=== PATIENT | female | born 1935 | race Caucasian/White ===

== ENCOUNTER 2019-03-29 08:23 | Day surgery (SDC) | payer MEDICARE ==
[~2019-03-29] VITALS: Ht 160 cm; Wt 62.2 kg
[~2019-03-29 08:23] MED LIST: LACT1CAP26 PO; LEVO500T89 PO; LEVO50TA8 PO; NIFE30TA95 PO
[2019-03-29] MEDS ORDERED: normal saline 1000ml 1,000 ML IV PRN (09:45)
--- NOTE | 2019-03-29 10:27 | NUR ---
on admission pt stated hx of IV Dye allergy-CT contacted and after consult with oil heat technician and physician it was decided to proceed without contrast so IV fluids were d/c'd and patient admission was no longer necessary. Addendum: 03/29/19 at 1030 by Lilia Mcfarland RN Amended: Links added.
== END 2019-03-29 10:00 | disposition home or self-care (01) ==
LOC: SSTAY O 08:23 → EDSTATUS 09:00 → SSTAY O 10:00
PROVIDERS: ATTEND Internal Medicine
DX: M89.8X8 Other specified disorders of bone, other site (principal); K76.89 Other specified diseases of liver; J98.11 Atelectasis; K57.30 Diverticulosis of large intestine without perforation or abscess without bleeding; Z88.0 Allergy status to penicillin; Z88.1 Allergy status to other antibiotic agents; Z88.8 Allergy status to other drugs, medicaments and biological substances; Z88.2 Allergy status to sulfonamides; Z91.041 Radiographic dye allergy status
CPT/HCPCS: 74176; J7030

== ENCOUNTER 2019-04-26 05:49 | Emergency (ER) | payer MEDICARE ==
[~2019-04-26] VITALS: Ht 160 cm; Wt 62.3 kg
[~2019-04-26 05:49] MED LIST changes: -LEVO500T89 PO
--- NOTE | 2019-04-26 06:07 | NUR ---
Pain to RLQ that radiates down her right leg. Hx of an abdominal mass. Pain is here for pain meds as she has no doctor to follow her.
[2019-04-26] MEDS ORDERED: TRAM50TA2 PO (06:45)
[2019-04-26] MEDS ORDERED: traMADol 50MG tablet PO ONE (06:45)
[2019-04-26 06:57] VITALS: BP 149/89
== END 2019-04-26 07:02 | disposition home or self-care (01) ==
LOC: ER 05:49
DX: R22.41 Localized swelling, mass and lump, right lower limb (principal); M79.604 Pain in right leg; N18.9 Chronic kidney disease, unspecified; G25.81 Restless legs syndrome; M35.00 Sjogren syndrome, unspecified; Z88.0 Allergy status to penicillin; Z88.2 Allergy status to sulfonamides; Z88.1 Allergy status to other antibiotic agents; Z88.8 Allergy status to other drugs, medicaments and biological substances; Z79.899 Other long term (current) drug therapy
CPT/HCPCS: 99283

== ENCOUNTER 2019-05-02 09:32 | Outpatient (CLI) | payer MEDICARE ==
[~2019-05-02 09:32] MED LIST changes: +TRAM50TA2 PO
== END 2019-05-02 23:59 | disposition home or self-care (01) ==
LOC: RAD 09:32
PROVIDERS: ATTEND Internal Medicine
DX: R93.7 Abnormal findings on diagnostic imaging of other parts of musculoskeletal system (principal); I10 Essential (primary) hypertension; Z87.891 Personal history of nicotine dependence
CPT/HCPCS: 78315; A9503

== ENCOUNTER 2019-05-13 16:36 | Emergency (ER) | payer MEDICARE ==
[~2019-05-13] VITALS: Ht 160 cm; Wt 64.5 kg
--- NOTE | 2019-05-13 17:12 | NUR ---
VASCULAR AT BEDSIDE PER ORDERS NOW.
--- NOTE | 2019-05-13 17:42 | NUR ---
VASCULAR AT BEDSIDE AND REPORTS NON OCCLUDING DVT, INFORMED CHRISTA AND PT TO BE MOVED FROM BED OF1 TO BED 08
--- NOTE | 2019-05-13 18:07 | NUR ---
VASCULAR FINISHED STATES NO DVT LEFT LEG, MOVED PT FROM OF1 TO BED 08, UNABLE TO EVALUTE PT VASCULAR WAS AT BEDSIDE THE ENTIRE TIME PT WAS IN OF1
--- NOTE | 2019-05-13 18:15 | NUR ---
DVT right groin/leg.
--- NOTE | 2019-05-13 19:23 | NUR ---
DISCUSSED PT'S C/O W/ PA VU; NEW ORDER FOR ULTRAM RECEIVED.
[2019-05-13] MEDS ORDERED: traMADol 50MG tablet PO ONE (19:25)
[2019-05-13 19:33] LABS: BASOPHILS # (AUTO) 0.1 X10'3 (0-0.2); EOSINOPHILS # (AUTO) 0.5 X10'3 (0-0.9); EOSINOPHILS % (AUTO) 6.6 % (0-6); HEMATOCRIT 30.2 % (35.0-45.0); HEMOGLOBIN 9.8 g/dl (12.0-16.0); LYMPHOCYTES # (AUTO) 1.3 X10'3 (1.1-4.8); LYMPHOCYTES % (AUTO) 18.1 % (21-51); MEAN CORPUSCULAR HEMOGLOBIN 26.8 PG (27.0-31.0); MEAN CORPUSCULAR HGB CONC 32.3 g/dL (33.0-36.5); MEAN CORPUSCULAR VOLUME 83.1 FL (78-98); MEAN PLATELET VOLUME 7.6 FL (7.4-10.4); MONOCYTES # (AUTO) 0.5 X10'3 (0-0.9); MONOCYTES % (AUTO) 7.5 % (2-12); NEUTROPHILS # (AUTO) 4.9 X10'3 (1.8-7.7); NEUTROPHILS % (AUTO) 66.8 % (42-75); PLATELET COUNT 284 X10'3 (140-440); RED BLOOD COUNT 3.64 X10'6 (4.20-5.60); RED CELL DISTRIBUTION WIDTH 19.6 % (11.5-14.5); WHITE BLOOD COUNT 7.3 X10'3 (4.5-11.0)
[2019-05-13 19:40] LABS: ALANINE AMINOTRANSFERASE 19 U/L (12-78); ALBUMIN 3.4 G/DL (3.4-5.0); ALBUMIN/GLOBULIN RATIO 0.7 (1.1-1.5); ALKALINE PHOSPHATASE 94 IU/L (46-116); ANION GAP 7 (8-16); ASPARTATE AMINO TRANSFERASE 30 U/L (10-37); BILIRUBIN,TOTAL 0.3 MG/DL (0.1-1.0); BLOOD UREA NITROGEN 19 MG/DL (7-18); BUN/CREATININE RATIO 17.8 (6.6-38.0); CHLORIDE 105 MMOL/L (99-107); CREATININE 1.07 MG/DL (0.40-0.90); GLUCOSE 83 MG/DL (70-104); POTASSIUM 3.5 MMOL/L (3.5-5.1); SODIUM 141 MMOL/L (135-145); TOTAL CARBON DIOXIDE 28.6 MMOL/L (24-32); TOTAL PROTEIN 8.1 G/DL (6.4-8.2); eGFR 49 ML/MIN
[2019-05-13 19:47] LABS: PARTIAL THROMBOPLASTIN TIME 30 SECONDS (22-32)
[2019-05-13 19:51] LABS: ANISOCYTOSIS 2+; HYPOCHROMASIA 1+; PLATELET ESTIMATE NORMAL
--- NOTE | 2019-05-13 20:05 | NUR ---
Per MALDONADO Calabrese he will be with the patient shortly to discuss medication and discharge home.
[2019-05-13] MEDS ORDERED: apixaban 5mg tablet PO STA (20:09)
[2019-05-13] MEDS ORDERED: APIX5TAB3 PO (20:27)
[2019-05-13 20:34] VITALS: BP 175/91
[2019-05-25] MEDS ORDERED: APIX5TAB3 PO (13:19)
== END 2019-05-13 20:46 | disposition home or self-care (01) ==
LOC: ER 16:38
DX: I82.411 Acute embolism and thrombosis of right femoral vein (principal); Z88.0 Allergy status to penicillin; Z88.2 Allergy status to sulfonamides; Z88.1 Allergy status to other antibiotic agents; Z79.899 Other long term (current) drug therapy; Z91.041 Radiographic dye allergy status; Z87.448 Personal history of other diseases of urinary system
CPT/HCPCS: 36415; 80053; 85025; 85610; 85730; 93970; 99284

== ENCOUNTER → 2019-05-25 | Emergency (ER) | payer MEDICARE ==
[~2019-05-25] VITALS: Ht 160 cm; Wt 62.3 kg
[~2019-05-25] MED LIST changes: +APIX5TAB3 PO; +enoxaparin 100mg/ml syringe SUBCUT ONE
[2019-05-25 12:54] LABS: BASOPHILS # (AUTO) 0.1 X10'3 (0-0.2); BASOPHILS % (AUTO) 1.1 % (0-1); EOSINOPHILS # (AUTO) 0.6 X10'3 (0-0.9); EOSINOPHILS % (AUTO) 7.8 % (0-6); HEMOGLOBIN 9.9 g/dl (12.0-16.0); LYMPHOCYTES # (AUTO) 1.3 X10'3 (1.1-4.8); MEAN CORPUSCULAR HEMOGLOBIN 27.4 PG (27.0-31.0); MEAN CORPUSCULAR HGB CONC 33.1 g/dL (33.0-36.5); MEAN PLATELET VOLUME 7.2 FL (7.4-10.4); MONOCYTES # (AUTO) 0.7 X10'3 (0-0.9); MONOCYTES % (AUTO) 8.6 % (2-12); NEUTROPHILS % (AUTO) 65.5 % (42-75); PLATELET COUNT 349 X10'3 (140-440); RED BLOOD COUNT 3.61 X10'6 (4.20-5.60); WHITE BLOOD COUNT 7.6 X10'3 (4.5-11.0)
[2019-05-25 13:07] VITALS: BP 123/85
[2019-05-25 14:04] LABS: PLATELET ESTIMATE NORMAL
[2019-05-25 14:05] LABS: ANISOCYTOSIS 2+; ELLIPTOCYTES FEW; POLYCHROMASIA 1+; SCHISTOCYTES FEW; TEAR DROP CELLS FEW
== END | disposition home or self-care (01) ==
LOC: ER 12:10
DX: I82.4Z1 Acute embolism and thrombosis of unspecified deep veins of right distal lower extremity (principal); D64.9 Anemia, unspecified; N18.9 Chronic kidney disease, unspecified; Z88.0 Allergy status to penicillin; Z88.2 Allergy status to sulfonamides; Z88.1 Allergy status to other antibiotic agents; Z79.899 Other long term (current) drug therapy
CPT/HCPCS: 36415; 85025; 96372; 99283; J1650

== ENCOUNTER 2020-10-11 11:28 | Emergency (ER) | payer MEDICARE ==
[~2020-10-11] VITALS: Ht 157.5 cm; Wt 60.0 kg
[~2020-10-11 11:28] MED LIST changes: -TRAM50TA2 PO; -enoxaparin 100mg/ml syringe SUBCUT ONE
[2020-10-11] MEDS ORDERED: acetaminophen 325mg tablet PO ONE (11:55)
--- NOTE | 2020-10-11 14:32 | NUR ---
Multiple attempts to contact several family members unsuccessfully. Will continue to call patient's contacts for a ride home.
[2020-10-11 15:30] VITALS: BP 154/73
== END 2020-10-11 15:32 | disposition home or self-care (01) ==
LOC: ER 11:30
DX: M53.3 Sacrococcygeal disorders, not elsewhere classified (principal); Z87.448 Personal history of other diseases of urinary system; I82.409 Acute embolism and thrombosis of unspecified deep veins of unspecified lower extremity; Z88.0 Allergy status to penicillin; Z88.2 Allergy status to sulfonamides; Z79.899 Other long term (current) drug therapy; W18.39XA Other fall on same level, initial encounter; Y93.89 Activity, other specified; Y92.89 Other specified places as the place of occurrence of the external cause; Y99.8 Other external cause status
CPT/HCPCS: 72170; 99284